=== PATIENT | male | born 1995 | race African-American/Black ===

== ENCOUNTER 2019-06-15 12:25 | Emergency (ER) | payer OTHER, SELFPAY ==
[2019-06-15 14:15] LABS: Urine Blood NEGATIVE (NEG); Urine Glucose NEGATIVE (NEG); Urine Protein NEGATIVE (NEG)
--- NOTE | 2019-06-15 14:27 | RAD REPORT ---
EXAM DESCRIPTION: CT - Stone Protocol - 06/15/2019 2:18 pm CLINICAL HISTORY: Abdominal pain. Dysuria COMPARISON: None. TECHNIQUE: Computed axial tomography of the abdomen pelvis was obtained without oral or IV contrast. Lack of IV and oral contrast limits evaluation of solid organs, bowel, and vessels. Coronal reformat salvatore images were obtained and reviewed. All CT scans are performed using dose optimization technique as appropriate and may include automated exposure control or mA/KV adjustment according to patient size. FINDINGS: A renal calculus is not seen. An ureteral calculus is not noted. A bladder calculus is not present. The liver, spleen, pancreas and adrenals appear grossly normal There is no evidence of diverticulitis. Tiny umbilical hernia contains fat IMPRESSION: Negative for a genitourinary calculus
[2019-06-15 14:37] LABS: Absolute Lymphocytes (CBC) 1.6 K/uL (0.7-4.9); Basophils % 0.5 % (0-1.3); Hematocrit 43.9 % (39.6-49.0); Lymphocytes % 23.8 % (15.3-44.8); MPV 7.9 fL (7.6-11.3); RBC Red Blood Cell Count 5.03 M/uL (4.33-5.43)
[2019-06-15] MEDS ORDERED: NA CHLORIDE 0.9% 1,000 ML ONE (15:01)
[2019-06-15] MEDS ORDERED: ONDANSETRON 4 MG/2 ML VIAL ONE (15:01)
[2019-06-15 15:11] LABS: ALT/SGPT 28 U/L (12-78); AST/SGOT 22 U/L (15-37); Albumin 3.9 g/dL (3.4-5.0); Alkaline Phosphatase 64 U/L (45-117); BUN Blood Urea Nitrogen 25 mg/dL (7-18); Bicarbonate 27 mmol/L (21-32); Bilirubin Direct 0.1 mg/dL (0-0.2); Bilirubin Total 0.4 mg/dL (0.2-1.0); Glucose Level 89 mg/dL (74-106); Lipase 94 U/L (73-393); Potassium 4.2 mmol/L (3.5-5.1); Protein, Total 7.6 g/dL (6.4-8.2); Sodium Level 139 mmol/L (136-145)
--- NOTE | 2019-06-15 16:16 | ER ---
Nurse's Notes [facility] Name: Austen Mccurdy Age: 23 yrs Sex: Male : 1995 Arrival Date: 06/15/2019 Time: 12:29 Bed 13 Private MD: Diagnosis: Low back pain;Dysuria Presentation: 06/15 12:33 Presenting complaint: Low back pain, lower abdominal pain, pain in groin when hb ambulating, and burning with urination x 1 week. Denies fever. Transition of care: patient was not received from another setting of care. Onset of symptoms was May 30, 2019. Risk Assessment: Do you want to hurt yourself or someone else? Patient reports no desire to harm self or others. Initial Sepsis Screen: Does the patient meet any 2 criteria? No. Patient's initial sepsis screen is negative. Does the patient have a suspected source of infection? No. Patient's initial sepsis screen is negative. Care prior to arrival: None. 12:33 Method Of Arrival: Ambulatory hb 12:33 Acuity: JAMES 3 hb Historical: - Allergies: 12:35 No Known Allergies; hb - Home Meds: 12:35 None [Active]; hb - PMHx: 12:35 None; hb - PSHx: 12:35 Hernia repair; Knees - bilateral; hb - Immunization history:: Adult Immunizations up to date. - Social history:: Smoking status: Patient/guardian denies using tobacco. - Ebola Screening: : No symptoms or risks identified at this time. Screenin:55 Abuse screen: Denies threats or abuse. Nutritional screening: No deficits noted. aj1 Tuberculosis screening: No symptoms or risk factors identified. 16:58 Fall Risk None identified. aj1 Assessment: 13:55 General: Appears in no apparent distress. uncomfortable, Behavior is calm, cooperative, aj1 appropriate for age. Pain: Complains of pain in low back area, abdomen and pelvis. Neuro: Level of Consciousness is awake, alert, obeys commands, Oriented to person, place, time, situation. Cardiovascular: Patient's skin is warm and dry. Cardiovascular:. Respiratory: Airway is patent Respiratory effort is even, unlabored, Respiratory pattern is regular, symmetrical. GI: Abdomen is non-distended, Patient currently denies diarrhea, nausea, vomiting. : Reports burning with urination. EENT: No signs and/or symptoms were reported regarding the EENT system. Derm: No signs and/or symptoms reported regarding the dermatologic system. Skin is pink, warm \T\ dry. normal. Musculoskeletal: No signs and/or symptoms reported regarding the musculoskeletal system. Circulation, motion, and sensation intact. 14:42 Reassessment: Patient appears in no apparent distress at this time. No changes from aj1 previously documented assessment. Patient and/or family updated on plan of care and expected duration. Pain level reassessed. Patient is alert, oriented x 3, equal unlabored respirations, skin warm/dry/pink. 15:58 Reassessment: Patient appears in no apparent distress at this time. No changes from aj1 previously documented assessment. Patient and/or family updated on plan of care and expected duration. Pain level reassessed. Patient is alert, oriented x 3, equal unlabored respirations, skin warm/dry/pink. 16:57 Reassessment: Patient appears in no apparent distress at this time. No changes from aj1 previously documented assessment. Patient and/or family updated on plan of care and expected duration. Pain level reassessed. Patient is alert, oriented x 3, equal unlabored respirations, skin warm/dry/pink. Vital Signs: 12:34 BP 157 / 81; Pulse 82; Resp 16; Temp 98.3; Pulse Ox 99% on R/A; Weight 127.01 kg; hb Height 5 ft. 4 in. (162.56 cm); Pain 6/10; 13:55 BP 134 / 70; Pulse 76; Resp 18; Pulse Ox 96% ; aj1 14:42 BP 137 / 82; Pulse 80; Resp 18; Pulse Ox 97% on R/A; aj1 12:34 Body Mass Index 48.06 (127.01 kg, 162.56 cm) hb ED Course: 12:29 Patient arrived in ED. mr 12:34 Triage completed. hb 12:34 Arm band placed on right wrist. hb 13:35 Yasmin Chanel, KIMBERLEY is Primary Nurse. aj1 13:37 Rene Ortega PA is PHCP. [facility] 13:37 Erwin Reyes MD is Attending Physician. [facility] 13:55 Patient has correct armband on for positive identification. Bed in low position. Call aj1 light in reach. Side rails up X 1. 13:55 No provider procedures requiring assistance completed. aj1 14:19 CT Stone Protocol In Process Unspecified. EDMS 15:25 Inserted saline lock: 20 gauge in right hand, using aseptic technique. aj1 16:58 IV discontinued, intact, bleeding controlled, No redness/swelling at site. Pressure aj1 dressing applied. Administered Medications: 14:48 Drug: NS 0.9% 1000 ml Route: IV; Rate: 1 bolus; Site: right hand; aj1 16:00 Follow up: IV Status: Completed infusion; IV Intake: 1000ml aj1 14:48 Drug: Zofran 4 mg Route: IVP; Site: right hand; aj1 16:00 Follow up: Response: No adverse reaction aj1 16:13 Drug: Rocephin (cefTRIAXone) 250 mg Route: IM; Site: right deltoid; aj1 16:56 Follow up: Response: No adverse reaction aj1 16:14 Drug: AZITHromycin 1 grams Route: PO; aj1 16:56 Follow up: Response: No adverse reaction aj1 16:14 Drug: Flagyl 2 grams Route: PO; aj1 16:57 Follow up: Response: No adverse reaction aj1 Intake: 16:00 IV: 1000ml; Total: 1000ml. aj1 Outcome: 16:15 Discharge ordered by . [facility] 16:59 Discharged to home ambulatory. aj1 16:59 Condition: good 16:59 Discharge instructions given to patient, Instructed on discharge instructions, follow up and referral plans. medication usage, Demonstrated understanding of instructions, follow-up care, medications, Prescriptions given X 1. 16:59 Patient left the ED. aj1 Signatures: Dispatcher [employer] Yasmin Remy, RN RN aj1 Rene Ortega PA PA jmm Rivera, Mary mr Baxter, Heather, KIMBERLEY CHU
--- NOTE | 2019-06-15 16:17 | EDPHYS ---
Physician Documentation [facility] Name: Austen Mccurdy Age: 23 yrs Sex: Male : 1995 Arrival Date: 06/15/2019 Time: 12:29 Bed 13 Private MD: ED Physician Erwin Reyes HPI: 06/15 13:55 This 23 yrs old Black Male presents to ER via Ambulatory with complaints of Back Pain, jmm Abdominal Pain, Urinary Problem. 13:55 The patient presents with pain that is acute. Onset: The symptoms/episode jmm began/occurred gradually, 1 week(s) ago. The pain radiates to the abdomen. This is a 23 year old male with no chronic medical conditions that presents to the ED with complaints of lower back pain and dysuria for the past week. Patient denies fever, denies vomiting, denies diarrhea. States the patient radiates to his abdomen. Denies penile discharge but states GF was recently diagnosed with trichomonas. . Historical: - Allergies: 12:35 No Known Allergies; hb - Home Meds: 12:35 None [Active]; hb - PMHx: 12:35 None; hb - PSHx: 12:35 Hernia repair; Knees - bilateral; hb - Immunization history:: Adult Immunizations up to date. - Social history:: Smoking status: Patient/guardian denies using tobacco. - Ebola Screening: : No symptoms or risks identified at this time. ROS: 13:55 Constitutional: Negative for fever, chills, and weight loss, Cardiovascular: Negative jmm for chest pain, palpitations, and edema, Respiratory: Negative for shortness of breath, cough, wheezing, and pleuritic chest pain. 13:55 MS/Extremity: Negative for injury and deformity, Skin: Negative for injury, rash, and discoloration. 13:55 Abdomen/GI: Positive for abdominal pain. 13:55 Back: Positive for pain with movement, flank pain. 13:55 : Positive for urinary symptoms. 13:55 All other systems are negative. Exam: 13:55 Head/Face: atraumatic. Eyes: EOMI, no conjunctival erythema appreciated ENT: Moist jmm Mucus Membranes Neck: Trachea midline, Supple Chest/axilla: Normal chest wall appearance and motion. Cardiovascular: Regular rate and rhythm. No edema appreciated Respiratory: Normal respirations, no respiratory distress appreciated Abdomen/GI: Non distended, soft 13:55 MS/ Extremity: Moves all extremities, no obvious deformities appreciated, no edema noted to the lower extremities Neuro: Awake and alert, normal gait Psych: Behavior is normal, Mood is normal, Patient is cooperative and pleasant 13:55 Constitutional: The patient appears in no acute distress, alert, awake. 13:55 Back: pain, that is mild, CVA tenderness, that is mild, is noted bilaterally. Vital Signs: 12:34 BP 157 / 81; Pulse 82; Resp 16; Temp 98.3; Pulse Ox 99% on R/A; Weight 127.01 kg; hb Height 5 ft. 4 in. (162.56 cm); Pain 6/10; 13:55 BP 134 / 70; Pulse 76; Resp 18; Pulse Ox 96% ; aj1 14:42 BP 137 / 82; Pulse 80; Resp 18; Pulse Ox 97% on R/A; aj1 12:34 Body Mass Index 48.06 (127.01 kg, 162.56 cm) hb MDM: 13:55 Patient medically screened. [facility] 16:01 Data reviewed: vital signs, nurses notes. Counseling: I had a detailed discussion with [facility] the patient and/or guardian regarding: the historical points, exam findings, and any diagnostic results supporting the discharge/admit diagnosis, lab results, radiology results, the need for outpatient follow up, to return to the emergency department if symptoms worsen or persist or if there are any questions or concerns that arise at home. 16:01 ED course: Patient administered empiric for therapy for sti due to girlfriends recent [facility] diagnosis of trichamonas. Patient advised to follow up with pcp and otherwise given strict return precautions. patient understood and agrees with the plan of care. . 06/15 13:55 Order name: Basic Metabolic Panel; Complete Time: 15:17 [facility] 06/15 13:55 Order name: CBC with Diff; Complete Time: 15:09 [facility] 06/15 13:55 Order name: Creatinine for Radiology; Complete Time: 15:09 [facility] 06/15 13:55 Order name: Hepatic Function; Complete Time: 15:17 [facility] 06/15 13:55 Order name: Lipase; Complete Time: 15:17 [facility] 06/15 14:10 Order name: Urine Dipstick--Ancillary (enter results); Complete Time: 14:31 06/15 13:55 Order name: IV Saline Lock; Complete Time: 14:41 [facility] 06/15 13:55 Order name: Labs collected and sent; Complete Time: 14:41 [facility] 06/15 13:56 Order name: CT Stone Protocol; Complete Time: 14:31 [facility] Administered Medications: 14:48 Drug: NS 0.9% 1000 ml Route: IV; Rate: 1 bolus; Site: right hand; aj1 16:00 Follow up: IV Status: Completed infusion; IV Intake: 1000ml aj1 14:48 Drug: Zofran 4 mg Route: IVP; Site: right hand; aj1 16:00 Follow up: Response: No adverse reaction aj1 16:13 Drug: Rocephin (cefTRIAXone) 250 mg Route: IM; Site: right deltoid; aj1 16:56 Follow up: Response: No adverse reaction aj1 16:14 Drug: AZITHromycin 1 grams Route: PO; aj1 16:56 Follow up: Response: No adverse reaction aj1 16:14 Drug: Flagyl 2 grams Route: PO; aj1 16:57 Follow up: Response: No adverse reaction aj1 Disposition: 18:20 Co-signature as Attending Physician, Erwin Reyes MD. rn Disposition: 06/15/19 16:15 Discharged to Home. Impression: Low back pain, Dysuria. - Condition is Stable. - Discharge Instructions: Back Pain, Adult, Dysuria. - Prescriptions for Cephalexin 500 mg Oral Capsule - take 1 capsule by ORAL route every 12 hours for 7 days; 14 capsule. - Medication Reconciliation Form, Thank You Letter, Antibiotic Education, Prescription Opioid Use form. - Follow up: Private Physician; When: 2 - 3 days; Reason: Recheck today's complaints, Continuance of care, Re-evaluation by your physician. Signatures: Dispatcher [employer] Yasmin Remy RN RN aj1 Rene Ortega PA PA jmm Nieto, Roman, MD MD rn Baxter, Heather, RN RN hb Corrections: (The following items were deleted from the chart) 16:59 16:15 06/15/2019 16:15 Discharged to Home. Impression: Low back pain; Dysuria. aj1 Condition is Stable. Forms are Medication Reconciliation Form, Thank You Letter, Antibiotic Education, Prescription Opioid Use. Follow up: Private Physician; When: 2 - 3 days; Reason: Recheck today's complaints, Continuance of care, Re-evaluation by your physician. lisa
[2019-06-15] MEDS ORDERED: metroNIDAZOLE 500 MG TABLET ONE (16:23)
[2019-06-15] MEDS ORDERED: AZITHROMYCIN 250 MG TAB ONE (16:23)
[2019-06-15] MEDS ORDERED: CEFTRIAXONE 250 MG/VIAL ONE (16:23)
== END 2019-06-15 16:59 | disposition home or self-care (01) ==
LOC: ER 12:25
DX: M54.5 Low back pain (principal); R30.0 Dysuria
CPT/HCPCS: 36415; 74176; 76377; 80048; 80076; 81003; 83690; 85025; J0696; J2405; J7030

== ENCOUNTER 2019-08-22 17:43 | Emergency (ER) | payer SELFPAY ==
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
[2019-08-22 20:06] VITALS: BP 119/66; TEMP 97.9; O2SAT 100
== END 2019-08-22 19:53 | disposition home or self-care (01) ==
LOC: ER 17:43
DX: M54.5 Low back pain (principal); V49.49XA Driver injured in collision with other motor vehicles in traffic accident, initial encounter
CPT/HCPCS: 72100; 99283

== ENCOUNTER 2024-12-23 18:46 | Emergency (ER) | payer BC, SELFPAY ==
--- OUTSIDE RECORDS SUMMARY | 2024-12-23 18:49 | XMS REPORT | Continuity of Care Document ---
Author Name Unknown Address [address] [place] [address] [facility] thconnect Address [address] [place] [address] Care Team Providers Care Kidney Trimmer Name Role Phone PCP, PATIENT DOES NOT HAVE A Primary Care Physic timbo Unavailable Tara Story Attending Clinician TARA KARIMI Attending Clinician Unavailable [facility] Attending Clinician Unavailable [facility] Admitting Clinician Unavailable Payers Payer Name Policy Type Policy Number Effective Date Expirati on Date Source Problems Condition Name Condition Details Condition Category Status Onset Date Resolution Date Last Treatment Date Treating Clinician Comments Source No known active problems No known active problems Disease [facility] Allergies, Adverse Reactions, Alerts Allergy Name Allergy Type Status Severity Reaction(s) Onset Date Inactive Date Treating Clinician Comments Source NO KNOWN ALLERGIE S Drug Class Active [facility] Social History Social Habit Start Date Stop Date Quantity Comments Source Exposure to SARS-CoV-2 (event) 2022-05-24 00:00:00 2022-06-03 19:22:00 Yes [facility] Sex Assigned At 1995 00:00:00 1995 00:00:00 [facility] Smoking Status Start Date Stop Date Source Tobacco smoking consumption unknown [facility] Medications Ordered Medication Name Filled Medication Name Start Date Stop Date Current Medication? Ordering Clinician Indication Dosage Frequency Signature (SIG) Comments Components Source ibuprofen (IBU) tablet 800 mg 06-04 00:45: 00 06-04 00:42 :00 No 800mg 800 mg, Oral, ONCE, 1 dose, On Thu06/03/22 at 1945, [facility] benzonatate 100 mg capsule 06-03 00:00: 00 Yes [id number] 100mg Take 1 capsule by mouth 3 (three) times daily as needed for Cough. [facility] codeine-gua ifenesin 10-100 mg/5 mL oral solution 06-03 00:00: 00 06-11 04:59 :00 No [id number] 10mL Take 10 mL by mouth every 6 (six) hours as needed for Cough for up to 7 days. Indication s: acute pain [facility] Vital Signs Vital Name Observation Time Observation Value Comments S ource Systolic blood pressure 2022-06-04 00:24:00 150 mm[Hg] [facility] Diastolic blood pressure 2022-06-04 00:24:00 82 mm[Hg] [facility] Heart rate 2022-06-04 00:24:00 92 /min [facility] Body temperature 2022-06-04 00:24:00 38.11 Lesia [facility] Respiratory rate 2022-06-04 00:24:00 22 /min [facility] Body height 2022-06-04 00:24:00 165.1 cm [facility] Body weight 2022-06-04 00:24:00 159.213 kg [facility] BMI 2022-06-04 00:24:00 58.41 kg/m2 [facility] Oxygen saturation in Arterial blood by Pulse oximetry 2022-06-04 00:24:00 98 /min [facility] Procedures Procedure Date / Time Performed Performing Clinicia n Source COVID-19 (ID NOW RAPID TESTING) 2022-06-04 00:26:00 Tara Karimi [facility] NOTICE OF PRIVACY PRACTICES 2022-06-04 00:08:45 Doctor Unassigned, Baron [facility] CONSENT/REFUSAL FOR DIAGNOSIS AND TREATMENT 2022-06-04 00:07:57 Doctor Unassigned, Baron [facility] Encounters Start Date/Time End Date/Time Encounter Type Admission Type Attending Clinicians Care Facility Care Department Encounter ID Source 2022-06-03 19:29:00 2022-06-03 20:09:[address] [facility] [id number] [facility] 2022-06-03 19:29:00 2022-06-03 20:09:00 Emergency X TARA KARIMI [facility] ERT [id number] [facility] 2022-03-06 03:28:00 2022-03-06 03:28:00 Outpatient [facility] [id number] [facility]
[2024-12-23 22:05] LABS: Absolute Eosinophils 0.2 K/uL (0-0.5); Absolute Lymphocytes (CBC) 2.5 K/uL (0.7-4.9); Absolute Monocytes 0.8 K/uL (0.1-1.3); Absolute Neutrophil 4.3 K/uL (1.8-8.0); Basophils % 0.6 % (0-1.3); Eosinophils % 2.4 % (0-4.4); Hematocrit 43.7 % (39.6-49.0); Hemoglobin 14.7 g/dL (13.6-17.9); Lymphocytes % 31.3 % (15.3-44.8); MCH 28.7 pg (27.0-35.0); MCHC 33.6 g/dL (32.0-36.0); MCV 85.6 fL (80-100); MPV 7.7 fL (7.6-11.3); Monocytes % 10.4 % (3.3-12.3); Neutrophils % 55.3 % (41.7-73.7); Nucleated Red Blood Cells % 0.1 % (0-0); Platelets 275 thou/uL (152-406); Red Cell Distribution Width 13.9 % (12.1-15.2)
[2024-12-23 22:07] LABS: Specific Gravity 1.029 (1.005-1.030); Sqamous Epithelial <5 /HPF (None Seen); Urine Bacteria <20 /HPF (<20); Urine Bilirubin NEGATIVE (Negative); Urine Blood Negative (Negative); Urine Clarity Clear (Clear); Urine Color Light-Yellow (Yellow); Urine Crystals Unidentified Few /HPF (None Seen); Urine Culture Reflex Order REFLEXED; Urine Glucose NEGATIVE (Negative); Urine Ketones NEGATIVE (Negative); Urine Microscopic Reflex YN ORDER UMIC; Urine Mucus Slight /HPF (None Seen); Urine Nitrite NEGATIVE (Negative); Urine Protein NEGATIVE (Negative); Urine Urobilinogen Normal (Normal); Urine WBC 20-50 /HPF (<5); Urine WBC Clump Rare /HPF (None Seen); Urine Yeast (Budding) Trace /HPF (None Seen)
[2024-12-23] MEDS ORDERED: ONDANSETRON 4 MG/2 ML VIAL ONE (22:55)
[2024-12-23] MEDS ORDERED: FAMOTIDINE 20 MG/2 ML VIAL IV ONE (22:56)
[2024-12-23] MEDS ORDERED: NA CHLORIDE 0.9% 1,000 ML ONE (22:56)
[2024-12-23 23:06] LABS: Albumin 3.3 g/dL (3.4-5.0); Albumin/Globulin Ratio 0.9 (1.1-1.8); Anion Gap 7.8 mEq/L (5.0-15.0); Bilirubin Total 0.2 mg/dL (0.2-1.0); Globulin 3.8 g/dL (2.3-3.5); Potassium 3.8 mEq/L (3.5-5.1); Protein, Total 7.1 g/dL (6.4-8.2)
--- NOTE | 2024-12-24 03:20 | RAD REPORT ---
EXAM DESCRIPTION: Abdomen Pelvis W Contrast CLINICAL HISTORY: ABD PAIN COMPARISON: 06/15/2019 TECHNIQUE: CT of the abdomen and pelvis performed following the administration of IV contrast. No ora l contrast. This exam was performed according to our departmental dose-optimization program, which includes automated exposure control, adjustment of the mA and/or kV according to patient size and/or use of iterative reconstruction technique. FINDINGS: Lung Bases: Linear opacities lateral right lung base probably due to scarring. Abdomen: Liver: The liver has normal contour and density. No suspicious mass. Gallbladder: No calcified gallstones. No significant biliary dilatation. Spleen, Pancreas, and Adrenal Glands: The spleen, pancreas, and adrenal glands are unremarkable. Kidneys: No suspicious mass. No urinary tract calculi. No hydronephrosis. Vasculature: The aorta and IVC have normal caliber and position. Stomach: The stomach and duodenum have normal course. Other: No free intraperitoneal air. No free fluid or lymphadenopathy. Pelvis: Bladder: Under distended. Bowel: No dilated loops of large or small bowel. No acute inflammatory process. Appendix: Normal appendix. Pelvis: No suspicious mass. Bones: No destructive bone lesions identified. IMPRESSION: No acute abnormality on CT of the abdomen and pelvis. Electronically signed by: Amberly Browne MD 12/24/2024 03:13 AM [facility] Due to temporary technical issues with the PACS/[employer] reporting system, reports are being radha d by the in-house radiologist without review as a courtesy to ensure prompt reporting the interpreting radiologist is fully responsible for the content of the report. Transcribed Date/Time: 12/24/2024 3:20 AM
--- NOTE | 2024-12-24 03:24 | ER ---
Nurse's Notes [facility] Name: Austen Mccurdy Age: 29 yrs Sex: Male : 1995 Arrival Date: 12/23/2024 Time: 18:46 Bed 13 Private MD: Diagnosis: Abdominal pain, unspecified;Urinary frequency Presentation: 12/23 19:09 Chief complaint: Patient states: Abdominal pain to belly button area onset Thursday. Pt cm10 states that the pain radiates to his back and groin, no nausea or vomiting. Coronavirus screen: Client denies travel out of the [place] in the last 14 days. Ebola Screen: Patient denies travel to an Ebola-affected area in the 21 days before illness onset. Initial Sepsis Screen: Does the patient meet any 2 criteria? No. Patient's initial sepsis screen is negative. Does the patient have a suspected source of infection? No. Patient's initial sepsis screen is negative. Risk Assessment: Do you want to hurt yourself or someone else? Patient reports no desire to harm self or others. Onset of symptoms was December 23, 2024. 19:09 Method Of Arrival: Ambulatory cm10 19:09 Acuity: JAMES 3 cm10 Triage Assessment: 19:11 General: Appears in no apparent distress. comfortable, Behavior is calm, cooperative. cm10 Neuro: No deficits noted. Level of Consciousness is awake, alert, obeys commands, Oriented to person, place, time, situation, Appropriate for age. Respiratory: No deficits noted. Airway is patent Respiratory effort is even, unlabored, Respiratory pattern is regular, symmetrical. Historical: - Allergies: 19:10 No Known Allergies; cm10 - PMHx: 19:10 Sleep apnea; cm10 - PSHx: 19:10 Tonsillectomy; Adenoid excision; cm10 19:11 Umbilical hernia repair; cm10 - Immunization history:: Adult Immunizations up to date. - Infectious Disease History:: Denies. - Social history:: Smoking status: unknown. - Family history:: not pertinent. Screenin:00 [facility] ED Fall Risk Assessment (Adult) History of falling in the last 3 months, me1 including since admission No falls in past 3 months (0 pts) Confusion or Disorientation No (0 pts) Intoxicated or Sedated No (0 pts) Impaired Gait No (0 pts) Mobility Assist Device Used No (0 pt) Altered Elimination No (0 pt) Score/Fall Risk Level 0 - 2 = Low Risk Maintained a safe environment, Provided non-skid footwear, Hourly rounding (assess needs \T\ fall precautionary measures) done. Abuse screen: Denies threats or abuse. Nutritional screening: No deficits noted. Tuberculosis screening: No symptoms or risk factors identified. Assessment: 23:00 General: Appears in no apparent distress. comfortable, obese, well groomed, well me1 developed, Behavior is calm, cooperative, appropriate for age, Reports Abdominal pain to belly button area onset Thursday. Pt states that the pain radiates to his back and groin, no nausea or vomiting. Pain: Complains of pain in umbilical area Pain radiates to back and pelvis Pain currently is 5 out of 10 on a pain scale. Quality of pain is described as shooting, Pain began 2-3 days ago. Is continuous. Neuro: Level of Consciousness is awake, alert, obeys commands, Oriented to person, place, time, situation, Appropriate for age. Cardiovascular: Patient's skin is warm and dry. Respiratory: Airway is compromised Respiratory effort is even, unlabored, Respiratory pattern is regular, symmetrical. GI: Reports upper abdominal pain, Patient currently denies constipation, diarrhea, nausea, vomiting. : No signs and/or symptoms were reported regarding the genitourinary system. EENT: No signs and/or symptoms were reported regarding the EENT system. Derm: Skin is intact, is healthy with good turgor, Skin is pink, warm \T\ dry. Musculoskeletal: No signs and/or symptoms reported regarding the musculoskeletal system. 12/24 01:28 Reassessment: PT RECEIVED FROM KIMBERLEY VANG. dd2 Vital Signs: 12/23 19:09 BP 145 / 83; Pulse 68; Resp 15; Temp 99(O); Pulse Ox 98% on R/A; Weight 154.22 kg; cm10 Height 5 ft. 4 in. ; Pain 04/25; 12/24 01:34 BP 131 / 81; Pulse 60; Resp 18; Temp 97.5; Pulse Ox 97% ; hw 02:45 BP 136 / 77; Pulse 59; Resp 16; Pulse Ox 99% on R/A; dd2 03:21 BP 113 / 76; Pulse 56; Resp 16; Pulse Ox 97% on R/A; dd2 12/23 19:09 Body Mass Index 58.36 (154.22 kg, 162.56 cm) cm10 12/23 19:09 Pain Scale: Adult cm10 ED Course: 12/23 18:49 Patient arrived in ED. ra3 19:10 Triage completed. cm10 19:11 Arm band placed on right wrist. Patient placed in waiting room. cm10 19:12 Jimmy Salinas MD is Attending Physician. mino 20:03 Attending Physician role handed off by Jimmy Salinas MD rt 20:03 Álvaro August MD is Attending Physician. rt 20:32 Radiology exam delayed due to lab results not completed at this time. (BUN/Creatinine) jc4 IV insertion attempt and/or patient not having appropriate IV at this time. 22:00 Lipase Sent. cm10 22:00 Urinalysis w/ reflexes Sent. cm10 22:00 Comprehensive Metabolic Panel Sent. cm10 22:00 CBC with Diff Sent. cm10 22:00 Initial lab(s) drawn, by id, sent to lab. Urine collected: clean catch specimen. cm10 Inserted saline lock: 20 gauge in right forearm, using aseptic technique. Blood collected. Flushed with 10 mL NS. 22:27 Margo Holt, RN is Primary Nurse. me1 23:00 Patient has correct armband on for positive identification. Bed in low position. Call me1 light in reach. Side rails up X 1. Provided Education on: POC. Verbalized understanding.. 23:00 No provider procedures requiring assistance completed. me1 23:29 CT Abd/Pelvis - IV Contrast Only In Process Unspecified. EDMS 12/24 03:33 IV discontinued, intact, bleeding controlled, No redness/swelling at site. Pressure dd2 dressing applied. Administered Medications: 12/23 22:59 Drug: NS 0.9% IV 1000 ml IV at 1000 ml once; to be given as a bolus over 60 minutes me1 Route: IV; Rate: 1000 ml; Site: left forearm; 22:59 Drug: Famotidine IVP 20 mg IVP once; dilute with 10 mL 0.9% NaCl; give over 2 minutes me1 Route: IVP; Site: right forearm; 22:59 Drug: Ondansetron IVP 4 mg IVP once; over 2 minutes Route: IVP; Site: right forearm; me1 Medication: 23:00 VIS not applicable for this client. me1 Outcome: 12/24 03:23 Discharge ordered by MD. rt 03:33 Discharged to home ambulatory, dd2 03:33 Condition: stable 03:33 Discharge instructions given to patient, family, Instructed on discharge instructions, follow up and referral plans. medication usage, Demonstrated understanding of instructions, follow-up care, medications, Prescriptions given X 1, 03:34 Patient left the ED. dd2 Signatures: Dispatcher [employer] EDMS Jimmy Salinas MD MD cha [place], Ryan, MD MD rt Olivia Marcelino RN RN cm10 Margo Holt RN RN me1 Isabel Pleitez ra3 Torito Lozano jc4 MANISH ORTEGA RN RN dd2 Divina Bose Corrections: (The following items were deleted from the chart) 12/23 23:00 19:09 Chief complaint: Patient states: Abdominal pain to belly button area onset me1 Thursday. Pt states that the pain radiates to his back and groin, no nausea or vomiting. cm10
--- NOTE | 2024-12-24 03:24 | EDPHYS ---
Physician Documentation [facility] Name: Austen Mccurdy Age: 29 yrs Sex: Male : 1995 Arrival Date: 12/23/2024 Time: 18:46 Bed 13 Private MD: ED Physician Álvaro August HPI: 12/23 23:55 This 29 yrs old Black Male presents to ER via Ambulatory with complaints of Urinary rt Problem - Stomach pain. 23:55 Patient presents to the ED with about 1 week of a abdominal pain around umbilicus, rt stated that this began when he started working out more. Denies other acute complaints at this time, symptoms are moderate in severity, no other aggravating or alleviating factors.. Historical: - Allergies: 19:10 No Known Allergies; cm10 - PMHx: 19:10 Sleep apnea; cm10 - PSHx: 19:10 Tonsillectomy; Adenoid excision; cm10 19:11 Umbilical hernia repair; cm10 - Immunization history:: Adult Immunizations up to date. - Infectious Disease History:: Denies. - Social history:: Smoking status: unknown. - Family history:: not pertinent. ROS: 23:55 Constitutional: Negative for fever, chills, and weight loss, Cardiovascular: Negative rt for chest pain, palpitations, and edema, Respiratory: Negative for shortness of breath, cough, wheezing, and pleuritic chest pain, MS/Extremity: Negative for injury and deformity, Skin: Negative for injury, rash, and discoloration, Neuro: Negative for headache, weakness, numbness, tingling, and seizure, 23:55 Abdomen/GI: Positive for abdominal pain, Negative for vomiting, Exam: 23:55 Constitutional: This is a well developed, well nourished patient who is awake, alert, rt and in no acute distress. Head/Face: Normocephalic, atraumatic. Chest/axilla: Normal chest wall appearance and motion. Nontender with no deformity. No lesions are appreciated. Cardiovascular: Regular rate and rhythm with a normal S1 and S2. No gallops, murmurs, or rubs. Normal PMI, no JVD. No pulse deficits. Respiratory: Lungs have equal breath sounds bilaterally, clear to auscultation and percussion. No rales, rhonchi or wheezes noted. No increased work of breathing, no retractions or nasal flaring. Skin: Warm, dry with normal turgor. Normal color with no rashes, no lesions, and no evidence of cellulitis. MS/ Extremity: Pulses equal, no cyanosis. Neurovascular intact. Full, normal range of motion. Neuro: Awake and alert, GCS 15, oriented to person, place, time, and situation. Cranial nerves II-XII grossly intact. Motor strength 5/5 in all extremities. Sensory grossly intact. Cerebellar exam normal. Normal gait. 23:55 Abdomen/GI: Mild tenderness at the umbilicus without rebound, guarding, distention, no other focal areas of tenderness, Vital Signs: 19:09 BP 145 / 83; Pulse 68; Resp 15; Temp 99(O); Pulse Ox 98% on R/A; Weight 154.22 kg; cm10 Height 5 ft. 4 in. ; Pain 6/10; 12/24 01:34 BP 131 / 81; Pulse 60; Resp 18; Temp 97.5; Pulse Ox 97% ; hw 02:45 BP 136 / 77; Pulse 59; Resp 16; Pulse Ox 99% on R/A; dd2 03:21 BP 113 / 76; Pulse 56; Resp 16; Pulse Ox 97% on R/A; dd2 12/23 19:09 Body Mass Index 58.36 (154.22 kg, 162.56 cm) cm10 12/23 19:09 Pain Scale: Adult cm10 MDM: 12/23 19:12 Medical Screening Exam initiated [facility] 12/24 04:00 Differential Diagnosis Muscle strain, UTI, hernia. Data reviewed: vital signs, nurses rt notes, lab test result(s), radiologic studies. Independent interpretation of the following test(s) in the Emergency Department CT Scan: My interpretation is No bowel obstruction seen on my interpretation of CT scan images. Counseling: I had a detailed discussion with the patient and/or guardian regarding the historical points, exam findings, and any diagnostic results supporting the discharge/admit diagnosis, lab results, radiology results, the need for outpatient follow up, to return to the emergency department if symptoms worsen or persist or if there are any questions or concerns that arise at home. Response to treatment: the patient's symptoms have mildly improved after treatment. 12/23 19:13 Order name: CBC with Diff; Complete Time: 23:07 [facility] 12/23 19:13 Order name: Comprehensive Metabolic Panel; Complete Time: 23:07 [facility] 12/23 19:13 Order name: Urinalysis w/ reflexes; Complete Time: 23:07 [facility] 12/23 19:14 Order name: Lipase; Complete Time: 23:07 [facility] 12/23 22:13 Order name: Urine Culture EDMS 12/23 19:14 Order name: CT Abd/Pelvis - IV Contrast Only [facility] 12/23 22:13 Order name: Misc. Order: recollect of green top; Complete Time: 22:38 sp Administered Medications: 12/23 22:59 Drug: NS 0.9% IV 1000 ml IV at 1000 ml once; to be given as a bolus over 60 minutes me1 Route: IV; Rate: 1000 ml; Site: left forearm; 22:59 Drug: Famotidine IVP 20 mg IVP once; dilute with 10 mL 0.9% NaCl; give over 2 minutes me1 Route: IVP; Site: right forearm; 22:59 Drug: Ondansetron IVP 4 mg IVP once; over 2 minutes Route: IVP; Site: right forearm; [email or web address] Disposition Summary: 12/24/24 03:23 Discharge Ordered Notes: Location: Home rt Problem: new rt Symptoms: have improved rt Condition: Stable rt Diagnosis - Abdominal pain, unspecified rt - Urinary frequency rt Followup: rt - With: Private Physician - When: 2 - 3 days - Reason: Discharge Instructions: - Discharge Summary Sheet rt - Abdominal Pain, Adult rt - Urinary Tract Infection, Adult rt Forms: - Medication Reconciliation Form rt - Antibiotic Education rt - Prescription Opioid Use rt - Patient Portal Instructions rt - Leadership Thank You Letter rt Prescriptions: - cefpodoxime 200 mg Oral tablet - take 1 tablet ORAL route every 12 hours with food; 14 tablet; Refills: 0, rt Product Selection Permitted Signatures: Dispatcher [employer] EDMS Jimmy Salinas MD MD cha Pinkerton, Shawna sp Turkington, Ryan, MD MD rt Olivia Marcelino RN RN cm10 Margo Holt RN RN [email or web address] Corrections: (The following items were deleted from the chart) 19:13 19:13 CBC+H.LAB.BRZ ordered. EDMS EDMS 19:14 19:13 COMPREHENSIVE METABOLIC PANEL+C.LAB.BRZ ordered. EDMS EDMS 19:14 19:13 Urinalysis+U.LAB.BRZ ordered. EDMS EDMS 19:13 Test, Urine+UC.LAB.BRZ ordered. EDFL EDMS 19:15 CANCEL PLEASE. mino EDMS 19:15 Test, Urine+UC.LAB.BRZ reviewed. [facility] EDMS
[2024-12-24 04:08] VITALS: TEMP 97.5
[2024-12-24 04:11] VITALS: BP 113/76; O2SAT 97
== END 2024-12-24 03:34 | disposition home or self-care (01) ==
LOC: ER 18:46
DX: R10.9 Unspecified abdominal pain (principal); R35.0 Frequency of micturition
CPT/HCPCS: 87088; 85025; 81001; 87086; 36415; 83690; 80053; 74177; 96375; 96374; 99284; Q9967; J2405; J7030